=== PATIENT | female | born 1945 | race Caucasian/White ===

== ENCOUNTER 2018-02-27 07:40 | Day surgery (SDC) | payer MEDICARE, BC ==
[~2018-02-27 07:40] MED LIST: Acetaminophen TAB* 325 MG PO PRN; Buffered Lidocaine 0.9% SYRIN* 5 ML/SYR SYRINGE INTRADERM ONE
[2018-02-27] MEDS ORDERED: Midazolam* 1 MG/ML 2 ML VIAL (2 MG) ONE ×2 (08:39→08:57)
[2018-02-27 09:35] VITALS: BP 143/48
[2018-02-27] MEDS ORDERED: Neomycin/Polymy/Dex OPTH.SUSP* MAXITROL 0.1% 5 ML ONE (15:48)
[2018-02-27] MEDS ORDERED: Proparacaine 0.5% OPHTH.SOL* 15 ML BTL ONE (15:48)
[2018-02-27] MEDS ORDERED: Povidone Iodine 5% OPTH* 30 ML BTL ONE (15:48)
[2018-02-27] MEDS ORDERED: Lidocaine 1%* 5 ML VIAL ONE (15:48)
[2018-02-27] MEDS ORDERED: acetaZOLAMIDE TAB* 250 MG ONE (15:48)
[2018-02-27] MEDS ORDERED: Ketorolac 0.5% OPHTH (NF) 0.5 % 5 ML BTL ONE (15:48)
[2018-02-27] MEDS ORDERED: Cyclopentolate 1% OPTH.SOL* 2 ML BTL ONE (15:48)
[2018-02-27] MEDS ORDERED: Lidocaine 2% EPI 1:200000 MPF*10-20 ML VIAL ONE (15:48)
[2018-02-27] MEDS ORDERED: Phenylephrine 2.5% OPTH.SOL* 2 ML BTL ONE (15:48)
--- NOTE | 2018-02-27 22:36 | OP ---
DATE OF OPERATION: 02/27/18 - [facility] DATE OF : 41 SURGEON: Monty Sahrma M.D. PREOPERATIVE DIAGNOSIS: Cataract and glaucoma, left eye. POSTOPERATIVE DIAGNOSIS: Cataract and glaucoma, left eye. OPERATIVE PROCEDURE: Extracapsular cataract extraction with intraocular lens implant, CTR, and iStent, left eye. DESCRIPTION OF PROCEDURE: The patient was brought to the operating room after being given 1/2% Alcaine with epinephrine drops in the preoperative area. The eye was prepped and draped in the usual sterile fashion. Sterile drape and eyelid speculum were placed. Again, topical 1/2% Alcaine with epinephrine was given. A paracentesis incision was made at the 3 o'clock position with the No.75 blade. Clear cornea incision 2.2 x 2.2-mm was created at the 6 o'clock position starting at the anterior limbus using the 2.2-mm keratome. The anterior chamber was irrigated with 0.4 mL of 1% non-preservative intracameral lidocaine and filled with DisCoVisc. A capsulorrhexis was completed using the cystotome and the Utrata forceps. Hydrodissection was performed with balanced salt solution. The lens nucleus was removed with the Phacoemulsification handpiece without incident. Cortex was removed with the irrigation-aspiration handpiece. The capsular bag was re-inflated using DisCoVisc and an SN60WF 20.5 implant was inserted with the shooter followed by capsular tension ring, ACTR-12 , inserted with its shooter. Of note, the pupil was very small about 3 mm, a Malyugin ring was used to dilate the pupil prior to capsulorrhexis and removed after insertion of the lens. After that, an iStent [id number] was inserted with its shooter at the 8 o'clock position without difficulty. The irrigation- aspiration handpiece was used to remove all residual DisCoVisc. The eye was refilled with balanced salt solution and the wound checked and found to be watertight. Topical Maxitrol drops were given. [id number]/[facility] #: [id number] MTDD
== END 2018-02-27 09:50 | disposition home or self-care (01) ==
LOC: OREAST 07:40
PROVIDERS: ATTEND Specialist
DX: H25.812 Combined forms of age-related cataract, left eye (principal); H40.1421 Capsular glaucoma with pseudoexfoliation of lens, left eye, mild stage; H40.1412 Capsular glaucoma with pseudoexfoliation of lens, right eye, moderate stage
CPT/HCPCS: A9270-GY; C1783; J2250; V2632

== ENCOUNTER 2018-10-30 07:50 | Day surgery (SDC) | payer MEDICARE, BC ==
[~2018-10-30 07:50] MED LIST changes: -Buffered Lidocaine 0.9% SYRIN* 5 ML/SYR SYRINGE INTRADERM ONE; +Buffered Lidocaine 1% SYRIN* 1 ML/SYRINGE INTRADERM ONE; +mitoMYcin 0.2 MG (0.02%) in Sterile Water for Inj* 1 ML OPHTHALMIC SCH
[2018-10-30] MEDS ORDERED: Midazolam* 1 MG/ML 2 ML VIAL (2 MG) ONE (09:29)
[2018-10-30 09:56] VITALS: BP 157/65
[2018-10-30] MEDS ORDERED: Lidocaine 2% EPI 1:200000 MPF*10-20 ML VIAL ONE (10:46)
[2018-10-30] MEDS ORDERED: Proparacaine 0.5% OPHTH.SOL* 15 ML BTL ONE (10:46)
[2018-10-30] MEDS ORDERED: Povidone Iodine 5% OPTH* 30 ML BTL ONE (10:46)
[2018-10-30] MEDS ORDERED: Lidocaine 1%* 5 ML VIAL ONE (10:46)
[2018-10-30] MEDS ORDERED: Neomycin/Polymy/Dex OPTH.SUSP* MAXITROL 0.1% 5 ML ONE (10:46)
--- NOTE | 2018-10-30 11:35 | OP ---
OPERATIVE REPORT: DATE OF OPERATION: 10/30/18 DATE OF : 41 SURGEON: Monty Sharma MD. ANESTHESIA: Local PRE-OP DIAGNOSIS: Uncontrolled glaucoma, right eye. POST-OP DIAGNOSIS: Uncontrolled glaucoma, right eye. OPERATIVE PROCEDURE: Xen stent, right eye. COMPLICATIONS: None. DESCRIPTION OF PROCEDURE: The patient was prepped and draped in the usual sterile fashion. Lidocain e 2% with epinephrine placed on the cornea. A paracentesis made with the 75 blade at the 11 o'clock position, anterior chamber irrigated with 1% non-preservative intracameral lidocaine followed by ProV isc. A 1.8 mm clear corneal incision made at the 7 o'clock position and Xen stent placed at the 1 o' clock position with its shooter without difficulty. Mitomycin 0.2 mg/ml 0.1 ml was injected near the opening of the stent subconjunctivally. Anterior chamber was irrigated and the eye was patched. [id number]/[facility] #: [id number]
== END 2018-10-30 10:10 | disposition home or self-care (01) ==
LOC: OREAST 07:50
PROVIDERS: ATTEND Specialist
DX: H40.1412 Capsular glaucoma with pseudoexfoliation of lens, right eye, moderate stage (principal); H35.341 Macular cyst, hole, or pseudohole, right eye; Z87.891 Personal history of nicotine dependence; F32.9 Major depressive disorder, single episode, unspecified
CPT/HCPCS: A9270-GY; C1725; J2250; J9280

== ENCOUNTER → 2019-04-30 06:25 | Day surgery (SDC) | payer MEDICARE, BC ==
[~2019-04-30 06:25] MED LIST changes: -Acetaminophen TAB* 325 MG PO PRN; +Acetylcholine 1:100 OPTH* OPHTH.SOLN ONE; +Atropine 1% OPHTH.SOL* 1 DROP BTL 2-5 ML ONE; +BSS OPTH.SOL* BTL ONE; +Bupivacaine 0.25% SDV PF* 10 ML VIAL INJ ONE; +Dexamethasone IV* 4 MG/ML 1 ML (4 MG) IV SLOW PU ONE; +Dexamethasone IV* 4 MG/ML 1 ML (4 MG) ONE; +Famotidine IV* 10 MG/ML 2 ML (20 mg) IV ONE; +Famotidine IV* 10 MG/ML 2 ML (20 mg) ONE; +Hyaluronidase OVINE* 200 UNIT/ML ML SUBCUT ONE; +Lactated Ringers 1000 ML Bag* 1,000 ML IV SCH; +Lidocaine 2% PF * 5 ML VIAL ONE; +Lidocaine 2% w/ EPI 1:200,000* 20 ML SDV VIAL ONE; +Midazolam* 1 MG/ML 2 ML VIAL (2 MG) ONE; +Neomycin/Polymy/Dex OPTH.SUSP* MAXITROL 0.1% 5 ML ONE; +Povidone Iodine 5% OPTH* 30 ML BTL ONE; +Proparacaine 0.5% OPHTH.SOL* 15 ML BTL ONE; +Propofol* 10 MG/ML 20 ML BTL ONE; +Sodium Bicarbonate 8.4% VIAL* 10 ML VIAL IV ONE; +Triamcinolone Acetonide* 40 MG/ML 1 ML VIAL ONE; -mitoMYcin 0.2 MG (0.02%) in Sterile Water for Inj* 1 ML OPHTHALMIC SCH; +mitoMYcin PWD* 0.2 MG in Sterile Water for Inj* 1 ML OPHTHALMIC SCH
[2019-04-30 08:31] VITALS: BP 123/63
--- NOTE | 2019-04-30 12:39 | OP ---
OPERATIVE NOTE: DATE OF OPERATION: 04/30/19 DATE OF : 41 SURGEON: Monty Sharma MD. ANESTHESIA: Local with MAC. PREOPERATIVE DIAGNOSIS: Uncontrolled glaucoma, right. POSTOPERATIVE DIAGNOSIS: Uncontrolled glaucoma, right. OPERATIVE PROCEDURE: Trabeculectomy, right COMPLICATIONS: None. DESCRIPTION OF PROCEDURE: The patient was given retrobulbar anesthesia in the operating room, 50:50 mixture of 2% lidocaine with epinephrine mixed with 0.75% Marcaine, 4 cc was injected into the muscle cone without difficulty. The eye was prepped and draped in the usual sterile fashion. A 6-0 silk s uperior limbal traction suture was placed. A fornix-based conjunctival peritomy was performed from t he 10:30 to 12 o'clock position using Poncho scissors. Mitomycin-C 0.2 mg/mL was left sub-Tenon fo r 2 minutes, then thoroughly irrigated with balanced salt solution. Paracentesis was made at the 8 o 'clock position using a 75 blade and then a half scleral thickness triangular limbal-based flap using the crescent blade. Anterior chamber was entered using a 3 mm keratome. Miostat was injected into the anterior chamber followed by DisCoVisc. A trabecular block was excised using the Cathy punch 3.1 mm. Peripheral iridectomy was performed with Vannas scissors. The scleral flap sutured with one 10 -0 nylon suture at the apex and then the conjunctiva closed using a running locking 10-0 nylon suture and 10-0 Vicryl suture. Sub-Tenon Kenalog 40 mg/mL 1 mL was injected at the end of the procedure. T opical atropine and Maxitrol given. All wounds were checked and found to be watertight and then the eye was patched. [id number]/[facility] #: [id number]
== END | disposition home or self-care (01) ==
LOC: OREAST 06:25
PROVIDERS: ATTEND Specialist
DX: H40.1421 Capsular glaucoma with pseudoexfoliation of lens, left eye, mild stage (principal); H35.351 Cystoid macular degeneration, right eye; Z87.891 Personal history of nicotine dependence
CPT/HCPCS: A9270-GY; J1100; J2250; J2704; J3301; J3471; J3490; J9280